=== PATIENT | male | born 1970 | race Caucasian/White ===

== ENCOUNTER 2022-01-12 08:17 | Day surgery (SDC) | payer OTHER ==
[~2022-01-12] VITALS: Ht 157.5 cm; Wt 88.2 kg
[~2022-01-12 08:17] MED LIST: ALBU8HFA IH; LORA10TA7 PO; OFLOXACIN 0.3% 5 ML OPHTHALMIC SOLUTION ONE; RINGERS SOLUTION,LACTATED 500 ML IV ONE
[2022-01-12] MEDS ORDERED: ONDANSETRON HCL 4 MG/2 ML VIAL IVP ONE (08:18)
[2022-01-12] MEDS ORDERED: MethylPREDNISolone SOD SUCC 40 MG/ML VIAL IVP ONE (08:18)
[2022-01-12] MEDS ORDERED: LIDOCAINE/PF 2% 5 ML VIAL IM ONE (08:18)
[2022-01-12] MEDS ORDERED: 0.9% SODIUM CHLORIDE 10 ML VIAL IRRIG ONE (08:18)
[2022-01-12] MEDS ORDERED: FentaNYL CITRATE PF 100 MCG/2 ML VIAL IVP ONE (08:18)
[2022-01-12] MEDS ORDERED: NEOMYCIN/POLYMYXIN B/DEXAMETH 3.5 GM OPHTHALMIC OINTMENT OD ONE (08:18)
[2022-01-12] MEDS ORDERED: DEXAMETHASONE SOD PHOS 4 MG/ML VIAL IVP ONE (08:18)
[2022-01-12] MEDS ORDERED: BALANCED SALT 15 ML OPHTHALMIC IRRIG.SOLN IO ONE (08:18)
[2022-01-12] MEDS ORDERED: LIDOCAINE/PF 1% 2 ML VIAL CAUDAL ONE (08:18)
[2022-01-12] MEDS ORDERED: MIDAZOLAM HCL 2 MG/2 ML VIAL IVP ONE (08:18)
[2022-01-12] MEDS ORDERED: TETRACAINE HCL/PF 0.5% 4 ML OPHTHALMIC SOLUTION OD ONE (08:18)
[2022-01-12] MEDS ORDERED: PROPOFOL 1% 20 ML VIAL IVP ONE (08:18)
[2022-01-12 08:45] LABS: COVID AG,FIA SOURCE NASOPHARYNGEAL
[2022-01-12] MEDS: OFLOXACIN 0.3% 5 ML OPHTHALMIC SOLUTION OD SCH ×3 (09:11→09:25)
[2022-01-12] MEDS ORDERED: LIDOCAINE 3.5% OD SCH (09:30)
[2022-01-12] MEDS ORDERED: MitoMYcin 0.2 MG/VIAL KIT FOR OPHTHALMIC USE OD ONE (10:30)
[2022-01-12] MEDS ORDERED: ACETAMINOPHEN 1000 MG/ISO-OSM 100 ML IV ONE ×2 (13:39→13:45)
[2022-01-12] MEDS ORDERED: HYDROmorphone HCL 2 MG/ML SYRINGE IVP PRN (13:45)
[2022-01-12] MEDS ORDERED: MEPERIDINE-PF 25 MG/ML VIAL IVP PRN (13:45)
[2022-01-12] MEDS ORDERED: FentaNYL CITRATE PF 100 MCG/2 ML VIAL IVP PRN (13:45)
[2022-01-12] MEDS ORDERED: KETOROLAC TROMETHAMINE 30 MG/ML VIAL IVP ONE (14:00)
[2022-01-12] MEDS ORDERED: OxyCODONE HCL/ACETAMINOPHEN 10-325 MG TABLET PO ONE (14:45)
[2022-01-12] MEDS ORDERED: OXYGEN THERAPY IH SCH (20:00)
== END 2022-01-12 16:20 | disposition home or self-care (01) ==
LOC: SURGERY 08:17
PROVIDERS: ATTEND Ophthalmology
DX: H11.031 Double pterygium of right eye (principal); E66.01 Morbid (severe) obesity due to excess calories; Z20.822 Contact with and (suspected) exposure to COVID-19; Z79.899 Other long term (current) drug therapy; Z87.891 Personal history of nicotine dependence; Z88.8 Allergy status to other drugs, medicaments and biological substances
CPT/HCPCS: 65426; 93005; 87426; C1716; J2704; J0690; J1100; J3010; J1885; J3490 ×2; J2250; J2920; J2405; Q9967; J7120; J0131; C9803